=== PATIENT | male | born 1965 | race Caucasian/White ===

== ENCOUNTER 2023-08-27 13:51 | Emergency (ER) | payer BC, MEDICAID ==
[2023-08-27 14:20] VITALS: RESP 18
--- NOTE | 2023-08-27 14:52 | XR ---
Left foot. HISTORY: Trauma COMPARISON: None TECHNIQUE: 3 views of left foot were obtained. FINDINGS: There is a markedly displaced fracture of the distal aspect of the distal phalanx of the fifth toe. No intra-articular abnormalities are seen. The remaining osseous structures are intact. IMPRESSION: Displaced fracture of the distal phalanx of the fifth toe.
[2023-08-27] MEDS: IBUPROFEN 800 MG TAB PO STA (15:16)
[2023-08-27] MEDS: HYDROcodone/APAP 7.5-325MG 1 EACH TAB PO ONE (15:17)
[2023-08-27] MEDS: LIDOCAINE 1% INJ 10MG/ML (20 ML MDV) SQ ONE (15:18)
[2023-08-27] MEDS: CEPHALEXIN 500 MG CAP PO STA (16:35)
[2023-08-27] MEDS: CEPHALEXIN 500MG STARTER PACK 4 CAP BTL PO STA (16:35)
[2023-08-27] MEDS: DIPH,PERTUS(ACELL)TETVAC-LF 0.5 ML VIAL IM ONE (16:35)
[2023-08-27] MEDS: IBUPROFEN 600 MG STARTER PACK 4 TAB BTL PO STA (16:41)
[2023-08-27] MEDS: ACET/COD 300 MG/30 MG STARTER PACK 6 TAB BTL PO STA (16:41)
--- NOTE | 2023-08-27 16:42 | ED ---
Lower Extremity Injury HPI - General Chief Complaint: Extremity Injury, Lower Stated Complaint: L foot toe inj Time Seen by Provider: 08/27/23 14:19 Source: patient, RN notes reviewed Mode of arrival: ambulatory Limitations: no limitations - History of Present Illness Initial Comments: This is a 58-year-old male who presents to the emergency department for a left foot injury. States that he was exercising and he dropped a 50 pound weight on his left foot. He has been able to ambulate since, but states that it is very painful, especially around the pinky toe. He also cut open his foot around the pinky toe and between the fourth and fifth toe. Unsure when his last tetanus vaccine was. - Related Data Home Medications Medication Instructions Recorded Confirmed Lansoprazole [Prevacid] 30 mg PO DAILY 09/09/14 09/10/14 Losartan/Hydrochlorothiazide 1 each PO DAILY 09/09/14 09/10/14 [Losartan-Hctz 100-25 mg Tab] Previous Rx's Medication Instructions Recorded Cephalexin [Keflex] 500 mg PO Q8HR 5 Days #15 cap 08/27/23 HYDROcodone/APAP 5-325MG [Bolt 1 tab PO Q6HR PRN 3 Days #12 tab 08/27/23 5-325] Ibuprofen [Motrin] 800 mg PO Q8H PRN #30 tab 08/27/23 Allergies Allergy/AdvReac Type Severity Reaction Status Date / Time minocycline HCl Allergy Rash/Hives Verified 08/27/23 14:08 [From Minocin] Review of Systems ROS Statement: Those systems with pertinent positive or pertinent negative responses have been documented in the HPI. ROS Other: All systems not noted in ROS Statement are negative. Past Medical History Past Medical History: GERD/Reflux, Hypertension History of Any Multi-Drug Resistant Organisms: None Reported Additional Past Surgical History / Comment(s): rt bicep repair Past Anesthesia/Blood Transfusion Reactions: No Reported Reaction Past Psychological History: No Psychological Hx Reported Smoking Status: Never smoker Past Alcohol Use History: Occasional Past Drug Use History: Marijuana General Exam Limitations: no limitations General appearance: alert, in no apparent distress Head exam: Present: atraumatic, normocephalic, normal inspection Respiratory exam: Present: normal lung sounds bilaterally. Absent: respiratory distress, wheezes, rales, rhonchi, stridor Cardiovascular Exam: Present: regular rate, normal rhythm, normal heart sounds. Absent: systolic murmur, diastolic murmur, rubs, gallop, clicks Neurological exam: Present: alert, oriented X3, CN II-XII intact Psychiatric exam: Present: normal affect, normal mood Skin exam: Present: other (Flap laceration to the pad of the left fifth toe and between toes 4 and 5. Visible subcutaneous tissue with active bleeding.) Course Vital Signs 08/27/23 08/27/23 14:03 17:01 Temperature 98.5 F 98.1 F Pulse Rate 71 72 Respiratory 18 18 Rate Blood Pressure 156/79 146/80 O2 Sat by Pulse 98 99 Oximetry Procedures - Laceration Laceration #1 Consent Obtained: verbal consent Indication: laceration Site: other (Left fifth toe) Size (cm): 3 Description: linear, stellate, flap Depth: simple, single layer Anesthetic Used: lidocaine 1% Anesthesia Technique: local infiltration Amount (mls): 3 Pre-repair: wound explored, irrigated extensively Type of Sutures: nylon Size of Sutures: 5-0 Number of Sutures: 10 Technique: simple, interrupted Laceration #2 Consent Obtained: verbal consent Indication: laceration Site: other (left fifth toe) Size (cm): 2 Description: linear, stellate Depth: simple, single layer Anesthetic Used: lidocaine 1% Anesthesia Technique: local infiltration Amount (mls): 2 Pre-repair: wound explored, irrigated extensively Type of Sutures: nylon Size of Sutures: 5-0 Number of Sutures: 7 Technique: simple, interrupted Medical Decision Making - Medical Decision Making This is a 58 year old male who presents to the emergency department for a left foot injury. Was pt. sent in by a medical professional or institution? @ -No Did you speak to anyone other than the patient for history? @ -No Did you review nursing and triage notes? @ -Yes, and I agree, it is accurate with regards to the patient's symptoms. Were old charts reviewed? @ -No Differential Diagnosis? @ -Differential Musculoskeletal: Muscular strain, contusion, ligament sprain, fracture, arthritis, septic arthritis, bursitis, cellulitis, muscle spasm, nerve compression, DVT, arterial occlusion, herpes zoster, electrolyte abnormality, tumor.... This is not meant to be in all inclusive list EKG interpreted by me (3pts min.)? @ -Not obtained X-rays interpreted by me (1pt min.)? @ -X-ray of the left fifth toe obtained. My interpretation identifies a fracture of the left fifth toe. CT interpreted by me (1pt min.)? @ -Not obtained U/S interpreted by me (1pt. min.)? @ -Not obtained What testing was considered but not performed? (CT, X-rays, U/S, labs)? Why? @ -None What meds were considered but not given? Why? @ -None Did you discuss the management of the patient with other professionals? @ -No Did you reconcile home meds? @ -No Was smoking cessation discussed for >3mins.? @ -No Was critical care preformed (if so, how long)? @ -No Were there social determinants of health that impacted care today? How? (Homelessness, low income, unemployed, alcoholism, drug addiction, transportation, low edu. Level, literacy, decrease access to med. care, correction, rehab)? @ -No Was there de-escalation of care discussed even if they declined? (Discuss DNR or withdrawal of care, Hospice)? @ -No What co-morbidities impacted this encounter? (DM, HTN, Smoking, COPD, CAD, Cancer, CVA, Hep., AIDS, mental health diagnosis, sleep apnea, morbid obesity)? @ -None Was patient admitted / discharged? @ -Discharged. X-ray of the left fifth toe obtained demonstrating a displaced fracture of the distal phalanx. He did have 2 open lacerations, one on the pad of the toe and one in between toes 4 and 5. Tetanus vaccine was updated. Both lacerations were repaired with sutures. Prior to suture placement his foot was soaked in hydrogen peroxide mixed with water to thoroughly cleanse the wounds. Given the concern for open fracture, we'll treat the patient with antibiotics. Prescription for Keflex and Ibuprofen provided with dosing instructions revi ewed. His foot was bandaged and he was given a postop shoe. He is instructed to return in 7-10 days for suture removal. Information for orthopedic follow up provided as well. Undiagnosed new problem with uncertain prognosis? @ -None Drug Therapy requiring intensive monitoring for toxicity (Heparin, Nitro, Insulin, Cardizem)? @ -None Were any procedures done? @ -Laceration repair with sutures. Diagnosis/symptom? @ -Fracture of distal phalanx of left toe, laceration Acute, or Chronic, or Acute on Chronic? @ -Acute Uncomplicated (without systemic symptoms) or Complicated (systemic symptoms)? @ -Uncomplicated Side effects of treatment? @ -None Exacerbation, Progression, or Severe Exacerbation] @ -Not applicable Poses a threat to life or bodily function? @ -This will limit his ability to ambulate for the mean time. Return precautions reviewed in depth, the patient is instructed to return to the emergency department with any new, worsening, or concerning symptoms. Patient verbalized understanding. This case was discussed in detail with the attending ED physician, Dr. Jerez. Presentation, findings, and treatment plan discussed in detail as well. - Radiology Data Radiology results: report reviewed, image reviewed Disposition Clinical Impression: Fracture of distal phalanx of toe of left foot, Laceration Disposition: HOME SELF-CARE Instructions (If sedation given, give patient instructions): Care For Your Stitches (ED), Toe Fracture (ED), Post Surgical Shoe (ED) Additional Instructions: Return to the emergency department with any new, worsening, or concerning symptoms, and in 7-10 days for removal of the stitches. Take the antibiotic as prescribed for 5 days. Alternate with ibuprofen and Tylenol as needed for pain relief. Take the Bolt sparingly when your pain is the most severe and be aware that it may make you drowsy. Follow up with your primary care provider in 1-2 days. Contact orthopedics for a follow up appointment as well, however if you would prefer to see your primary care provider first, that is fine too. Prescriptions: Cephalexin [Keflex] 500 mg PO Q8HR 5 Days #15 cap Ibuprofen [Motrin] 800 mg PO Q8H PRN #30 tab PRN Reason: Pain HYDROcodone/APAP 5-325MG [Bolt 5-325] 1 tab PO Q6HR PRN 3 Days #12 tab PRN Reason: Pain Is patient prescribed a controlled substance at d/c from ED?: Yes When asked, does pt state using other controlled substances?: No If prescribed controlled substance>3 days was MAPS reviewed?: Prescribed <3 Days Referrals: Franco Gutierrez MD [Primary Care Provider] - 1-2 days Abner Salcedo DO [Doctor of Osteopathic Medicine] - 1-2 days Time of Disposition: 16:42
[2023-08-27 17:24] VITALS: BP 146/80; PULSE 72; TEMP 98.1
== END 2023-08-27 17:03 | disposition home or self-care (01) ==
LOC: EC 13:51
DX: S92.912A Unspecified fracture of left toe(s), initial encounter for closed fracture (principal); I10 Essential (primary) hypertension; K21.9 Gastro-esophageal reflux disease without esophagitis; F12.90 Cannabis use, unspecified, uncomplicated; Z79.899 Other long term (current) drug therapy; Z23 Encounter for immunization; Z88.8 Allergy status to other drugs, medicaments and biological substances; W20.8XXA Other cause of strike by thrown, projected or falling object, initial encounter
CPT/HCPCS: 73630; 90715; 12002; 99284; 90471; J2001